=== PATIENT | female | born 1975 | race Caucasian/White ===

== ENCOUNTER 2017-08-14 10:03 | Emergency (ER) | payer SELFPAY ==
[~2017-08-14] VITALS: Ht 160 cm; Wt 91.3 kg
[~2017-08-14 10:03] MED LIST: CETIRIZINE HCL10 M2; FLEXERIL5 MG PO; MOTRIN600 MG PO; NORCO 5/3251 TABLET PO; VENLAFAXINE HCL75 M3
[2017-08-14] MEDS ORDERED: ZOFRAN ODT8 MG PO (14:29)
[2017-08-14] MEDS ORDERED: DOXYCYCLINE MO100 MG PO (14:29)
[2017-08-14 14:46] VITALS: BP 155/97
== END 2017-08-14 14:48 | disposition home or self-care (01) ==
LOC: EME 10:03
PROC: 0H9JXZZ Drainage of Left Upper Leg Skin, External Approach (ICD-10-PCS; principal; 2017-08-14)
DX: L03.116 Cellulitis of left lower limb (principal); R11.2 Nausea with vomiting, unspecified; F41.9 Anxiety disorder, unspecified; Z88.1 Allergy status to other antibiotic agents; E28.2 Polycystic ovarian syndrome; F17.200 Nicotine dependence, unspecified, uncomplicated
CPT/HCPCS: 99281; 99284